=== PATIENT | female | born 1940 | race Caucasian/White ===

== ENCOUNTER 2017-01-24 17:47 | Inpatient (IN) ==
--- NOTE | 2017-01-24 23:06 | Hospitalist History & Physical ---
Assessment and Plan (1) Chronic wound of extremity Status: Acute Current Visit: Yes (2) History of gout Status: Acute Current Visit: Yes (3) Atrial fibrillation Status: Acute Current Visit: Yes (4) Supratherapeutic INR Status: Acute Current Visit: Yes (5) Hypertension Status: Acute Current Visit: Yes (6) Chronic pain Status: Acute Current Visit: Yes (7) Urinary tract infection Status: Acute Assessment and plan: Our plan for this patient is admitting her to our service. I need wound care to evaluate the patient for her chronic wounds. I need to start on some antibiotics for a urinary tract infection that was diagnosed at the outside facility. We will repeat urinalysis and cultures here. I need to follow INR daily. I need to order chemistry tonight and tomorrow. We need to get this lady's left ankle x-rayed. This can be done in the morning. The x-rays okay need to start some physical therapy on this patient. Daily INR and restart Coumadin when the INR is 2. Current Visit: Yes History of Present Illness Chief complaint: Transfer from [facility] History of present illness: Ms. Villavicencio is a 76 year old female past medical history significant for chronic wounds atrial fibrillation and hypertension who lives at home with her . She obtains her medical care from [facility]. That is where her primary care doctor is. She also has been seen at the wound care clinic by Dr. Rosamaria Michelle. Patient checks her Coumadin level at home. She held her Coumadin after she noted she developed a hematoma on her right chest wall. She checked it yesterday and noted that it was 8. Patient went to [facility] because she could not tolerate standing on her left ankle. Patient was diagnosed with urinary tract infection. We accepted the patient as transfer because of her chronic weeping wounds and the fact that her INR was still elevated at 5. Antibiotics were not start started at the outside facility. Home Medications Medication Instructions Recorded Confirmed Type Carvedilol [Coreg] 25 mg PO BID 01/24/17 01/24/17 History Digoxin 250 mcg PO DAILY 01/24/17 01/24/17 History Furosemide Tab [Lasix Tab] 20 mg PO DAILY PRN 01/24/17 01/24/17 History Lisinopril 20 mg PO DAILY 01/24/17 01/24/17 History Meloxicam 7.5 mg PO BEDTIME 01/24/17 01/24/17 History Potassium Chloride 10 meq PO DAILY 01/24/17 01/24/17 History Warfarin [Coumadin] 4 mg PO DAILY@1800 01/24/17 01/24/17 History fentaNYL [Fentanyl 12.5 mcg/hr 1 patch TRANSDERM Q3DAY 01/24/17 01/24/17 History Patch] Allergies Allergy/AdvReac Type Severity Reaction Status Date / Time allopurinol Allergy Severe severe rash Verified 09/20/15 09:17 amlodipine [From Norvasc] Allergy Severe severe Verified 09/20/15 09:20 edema, rash gabapentin [From Neurontin] Allergy Severe passed out Verified 09/20/15 09:19 red dye Allergy Severe excoriating Verified 09/20/15 09:20 rash, edema metformin Allergy Unknown nausea, Verified 09/20/15 09:18 vomiting, blisters morphine Allergy itch, rash Verified 09/20/15 09:21 Medical,Surgical,& Family Hx - Medical History Other: History of: Miscellaneous Medical Problems (Chronic wounds, atrial fibrillation, hypertension, osteoarthritis, gout) - Surgical History Additional Surgical History: Skin grafts, appendectomy, hernia, , cholecystectomy, hysterectomy - Family History Family History: Reports;: Family Cancer - Social History Smoking Status: Never smoker Frequency of Alcohol Use: None Type of Drug Use: None 12 point system: reviewed and no additional remarkable complaints except as stated Exam - Constitutional General appearance: over weight - Head Head exam: Present: normal inspection - Eye Eye exam: Present: EOMI Pupils: Present: JAILYN - ENT ENT exam: Present: normal exam - Neck Neck exam: Present: normal inspection - Respiratory Respiratory exam: Present: clear to auscultation bilaterally - Cardiovascular Cardiovascular exam: Present: irregular rhythm, other (Patient has a chest wall hematoma on the right) - GI/Abdominal GI/Abdominal exam: Present: normal bowel sounds - Extremities Exam Extremities exam: Present: edema, other (Patient has generalized weakness in her lower extremities. She has her chronic wound wrapped on the left. There are year several wounds on her buttocks.) - Back Exam Back exam: Present: normal inspection - Neurological Exam Neurological exam: Present: oriented X3 - Psychiatric Psychiatric exam: Present: normal affect, normal mood Results - Labs Labs: Labs from [facility] white count 10.76 hemoglobin 8.6 hematocrit 27.7 platelets 352 urinalysis negative nitrites moderate leukocyte esterases uric acid 4.5 INR is 5.7 I do not see a chemistry
[2017-01-24] MEDS ORDERED: ONDANSETRON 4 MG/2 ML VIAL IV PRN (23:40)
[2017-01-24] MEDS ORDERED: FUROSEMIDE 20 MG TABLET PO PRN (23:47)
[2017-01-25] MEDS: ACETAMINOPHEN 325 MG TABLET PO PRN ×2 (00:18→08:07)
[2017-01-25 01:43] LABS: Calcium 7.6 MG/DL (8.5-10.1); Osmolality,Calculated 283.1 MOS/KG (273-304); Potassium 3.8 MMOL/L (3.5-5.1)
[2017-01-25] MEDS: cefTRIAXone 1,000 MG in SODIUM CHLORIDE 0.9% 100 ML IV SCH (04:39)
[2017-01-25 05:38] LABS: Apearance,Urine Slightly Hazy (Clear); Bacteria,Urine Many /HPF (Few); Bilirubin,Urine Negative (Negative); Blood, Urine Negative (Negative); Glucose,Urine (UA) Negative (Negative); Ketones,Urine Negative (Negative); Mucus,Urine Occasional /LPF (Occasional); Nitrite,Urine Negative (Negative); Protein,Urine 30 MG/DL; RBC,Urine 3 /HPF (0-4); Squamous Epithelial Cell,Urine Occasional /HPF (0-10); Urine Color Amber (Yellow); Urine Specific Gravity 1.017 (1.001-1.035); Urine Urobilinogen < 2.0 EU/DL (0.2-1.0); WBC,Urine 194 /HPF (0-6)
[2017-01-25 05:53] LABS: Basophils % 0.3 % (0.0-0.8); Eosinophils # 0.1 10*3/uL (0.0-0.87); Eosinophils % 0.9 % (0.00-10.9); Hematocrit 23.9 VOL% (35.7-47.0); Hemoglobin 7.8 GM/DL (12.0-16.0); Immature Granulocytes % 1.3 %; Immature Granulocytes Absolute 0.13 #; Lymphocytes # 1.5 10*3/uL (1.4-4.0); Lymphocytes % 15.3 % (21.3-54.2); Mean Corpuscular HGB Conc 32.6 GM/DL (32-36); Mean Corpuscular Hemoglobin 29 PG (27-34); Mean Corpuscular Volume 87.5 FL (87-102); Mean Platelet Volume 10.1 FL (9.6-12.0); Monocytes # 0.9 10*3/uL (0.11-0.8); Monocytes % 8.6 % (1.7-12.7); Neutrophils # 7.3 10*3/uL (1.4-7.4); Neutrophils % 73.6 % (38.7-73.9); Platelet Count 324 T/CUMM (130-400); Red Blood Count 2.73 MC/CUMM (3.8-5.5); Red Cell Distribution Width 13.4 % (9.3-17.3); White Blood Count 9.9 T/CUMM (4-12)
[2017-01-25 06:12] LABS: PT Patient Result 73.2 SECS
[2017-01-25 06:14] LABS: INR 6.2
[2017-01-25 06:57] LABS: Calcium 7.6 MG/DL (8.5-10.1); Osmolality,Calculated 276.1 MOS/KG (273-304); Potassium 3.5 MMOL/L (3.5-5.1)
[2017-01-25] MEDS: LISINOPRIL 20 MG TABLET PO SCH (08:07)
[2017-01-25] MEDS: POTASSIUM CHLORIDE 10 MEQ TABLET PO SCH (08:08)
[2017-01-25] MEDS: PANTOPRAZOLE 40 MG TABLET PO SCH (08:08)
--- NOTE | 2017-01-25 09:06 | XRay Report ---
Exam: XR ankle 2V RT Date: 01/25/2017 7:00 AM Comparison: 03/15/2016 Indication: Ankle pain Technique:[AP lateral right ankle] Findings: Soft tissue swelling. Persistent extensive soft tissue calcifications and arterial calcifications. Joint space narrowing with osteophytes including calcaneal osteophyte. Chronic os trigonum. No acute fracture or dislocation, or periosteal thickening. Impression: Soft tissue swelling with extensive soft tissue and arterial calcifications. Minimal to moderate DJD with calcaneal osteophytes. No acute fracture or dislocation. PROCEDURE INTERPRETED AT [facility] DEPARTMENT OF RADIOLOGY Final Report Signed by: Dr. Kortney Beck
[2017-01-25] MEDS: DIGOXIN 0.25 MG TABLET PO SCH (11:22)
[2017-01-25] MEDS: CARVEDILOL 25 MG TABLET PO SCH ×2 (11:22→20:54)
[2017-01-25] MEDS: COLLAGENASE OINT 30 GM TUBE TOP SCH (16:58)
[2017-01-25] MEDS: oxyCODONE IR 5 MG TABLET PO PRN (20:47)
[2017-01-25] MEDS: MELOXICAM 7.5 MG TABLET PO SCH (20:47)
[2017-01-25] MEDS: ZALEPLON 5 MG CAPSULE PO PRN (20:48)
--- NOTE | 2017-01-25 20:54 | Hospitalist Progress Note ---
Hospitalist: Subjective Interval history: 76 year old female past medical history significant for chronic wounds atrial fibrillation and hypertension who lives at home with her . She obtains her medical care from [facility]. That is where her primary care doctor is. She also has been seen at the wound care clinic by Dr. Rosamaria Michelle. Patient checks her Coumadin level at home. She held her Coumadin after she noted she developed a hematoma on her right chest wall. She checked it yesterday and noted that it was 8. Patient went to [facility] because she could not tolerate standing on her left ankle. Patient was diagnosed with urinary tract infection. We accepted the patient as transfer because of her chronic weeping wounds and the fact that her INR was still elevated at 5. Antibiotics were not start started at the outside facility. Exam - Constitutional Vitals: Period Temp Pulse Resp BP Sys/Lester Pulse Ox Last 24 Hr 97 F-98.1 F 56-73 16-20 109-138/49-60 91-99 Exam: General: No Acute Distress HEENT: Normocephalic, atraumatic, Extra ocular movements intact Neck: Supple, No JVD Chest: Clear to auscultation B/L CV: S1 + S2 audible without murmur, gallop or rub Abd: soft, NT, Non-distended, BS + Ext: Positive edema, lower extremity wounds Skin: No purpura, bruising or rash Rheumatologic: No Joint deformities Neurologic: Strength 5/5 all extremities, no gross sensory deficits Results - Labs CBC & BMP: 01/25/17 05:36 01/25/17 05:36 - Impressions Assessment and Plan (1) Chronic wound of extremity Status: Acute Current Visit: Yes (2) History of gout Status: Acute Current Visit: Yes (3) Atrial fibrillation Status: Acute Current Visit: Yes (4) Supratherapeutic INR Status: Acute Current Visit: Yes Coumadin remains on hold, continue to monitor INR (5) Hypertension Status: Acute Current Visit: Yes (6) Chronic pain Status: Acute Current Visit: Yes Continue fentanyl and oxycodone (7) Urinary tract infection Status: Acute Continue IV Rocephin
[2017-01-26] MEDS: cefTRIAXone 1,000 MG in SODIUM CHLORIDE 0.9% 100 ML IV SCH (01:44)
[2017-01-26] MEDS: oxyCODONE IR 5 MG TABLET PO PRN ×4 (01:53→22:08)
[2017-01-26 04:21] LABS: INR 3.9
[2017-01-26 04:44] LABS: PT Patient Result 45.1 SECS
[2017-01-26] MEDS ORDERED: SKIN HEALING OINT (AQUAPHOR) 50 GM TUBE TOP PRN (08:05)
[2017-01-26] MEDS: DIGOXIN 0.25 MG TABLET PO SCH (08:26)
[2017-01-26] MEDS: LISINOPRIL 20 MG TABLET PO SCH (08:27)
[2017-01-26] MEDS: PANTOPRAZOLE 40 MG TABLET PO SCH (08:27)
[2017-01-26] MEDS: POTASSIUM CHLORIDE 10 MEQ TABLET PO SCH (08:28)
[2017-01-26] MEDS: CARVEDILOL 25 MG TABLET PO SCH ×2 (08:28→22:06)
[2017-01-26] MEDS: predniSONE 20 MG TABLET PO SCH (11:14)
[2017-01-26] MEDS: POLYETHYLENE GLYCOL POWDER 17 GM PACK PO SCH (11:19)
[2017-01-26] MEDS ORDERED: ENOXAPARIN 40 MG/0.4 ML SYRINGE SUBCUT SCH (13:00)
--- NOTE | 2017-01-26 13:55 | Hospitalist Progress Note ---
Hospitalist: Subjective Interval history: 76 year old female past medical history significant for chronic wounds atrial fibrillation and hypertension who lives at home with her . She obtains her medical care from [facility]. That is where her primary care doctor is. She also has been seen at the wound care clinic by Dr. Rosamaria Michelle. Patient checks her Coumadin level at home. She held her Coumadin after she noted she developed a hematoma on her right chest wall. She checked it yesterday and noted that it was 8. Patient went to [facility] because she could not tolerate standing on her left ankle. Patient was diagnosed with urinary tract infection. We accepted the patient as transfer because of her chronic weeping wounds and the fact that her INR was still elevated at 5. Antibiotics were not start started at the outside facility. Exam - Constitutional Vitals: Period Temp Pulse Resp BP Sys/Lester Pulse Ox Last 24 Hr 97.5 F-100 F 66-87 16-20 128-152/58-69 96-100 Exam: General: No Acute Distress HEENT: Normocephalic, atraumatic, Extra ocular movements intact Neck: Supple, No JVD Chest: Clear to auscultation B/L CV: S1 + S2 audible without murmur, gallop or rub Abd: soft, NT, Non-distended, BS + Ext: Positive edema, lower extremity wounds Skin: No purpura, bruising or rash Rheumatologic: No Joint deformities Neurologic: Strength 5/5 all extremities, no gross sensory deficits Results - Labs CBC & BMP: 01/25/17 05:36 01/25/17 05:36 - Impressions Assessment and Plan (1) Chronic wound of extremity Status: Acute Current Visit: Yes (2) History of gout Status: Acute Current Visit: Yes Started on prednisone 01/26 (3) Paroxysmal atrial fibrillation Status: Acute Current Visit: Yes (4) Supratherapeutic INR Status: Acute Current Visit: Yes Coumadin remains on hold, continue to monitor INR, and restart Coumadin at a lower dose and monitor INR (5) Hypertension Status: Acute Current Visit: Yes (6) Chronic pain syndrome Status: Acute Current Visit: Yes Continue fentanyl and oxycodone (7) Urinary tract infection Status: Acute Continue IV Rocephin DVT prophylaxis with Coumadin
[2017-01-26] MEDS: COLLAGENASE OINT 30 GM TUBE TOP SCH (15:13)
[2017-01-26] MEDS: fentaNYL 25 MCG/HR PATCH TRANSDERM SCH (15:14)
[2017-01-26] MEDS: MELOXICAM 7.5 MG TABLET PO SCH (22:06)
[2017-01-26] MEDS: ZALEPLON 5 MG CAPSULE PO PRN (22:06)
[2017-01-27] MEDS: cefTRIAXone 1,000 MG in SODIUM CHLORIDE 0.9% 100 ML IV SCH (00:19)
[2017-01-27 06:28] LABS: INR 3.1
[2017-01-27 06:37] LABS: PT Patient Result 34.7 SECS
[2017-01-27] MEDS: predniSONE 20 MG TABLET PO SCH (09:13)
[2017-01-27] MEDS: PANTOPRAZOLE 40 MG TABLET PO SCH (09:13)
[2017-01-27] MEDS: POTASSIUM CHLORIDE 10 MEQ TABLET PO SCH (09:13)
[2017-01-27] MEDS: LISINOPRIL 20 MG TABLET PO SCH (09:14)
[2017-01-27] MEDS: fentaNYL 12 MCG/HR PATCH TRANSDERM SCH (09:14)
[2017-01-27] MEDS: POLYETHYLENE GLYCOL POWDER 17 GM PACK PO SCH (09:15)
[2017-01-27] MEDS: CARVEDILOL 25 MG TABLET PO SCH (10:02)
[2017-01-27] MEDS: DIGOXIN 0.25 MG TABLET PO SCH (10:02)
[2017-01-27] MEDS: CHOLECALCIFEROL 1,000 UNIT TABLET PO SCH (12:33)
[2017-01-27] MEDS: CARVEDILOL 12.5 MG TABLET PO SCH ×2 (12:33→21:55)
[2017-01-27] MEDS: oxyCODONE IR 5 MG TABLET PO PRN ×2 (14:28→21:58)
[2017-01-27] MEDS: COLLAGENASE OINT 30 GM TUBE TOP SCH (15:17)
--- NOTE | 2017-01-27 17:57 | Hospitalist Progress Note ---
Hospitalist: Subjective Interval history: 76 year old female past medical history significant for chronic wounds atrial fibrillation and hypertension who lives at home with her . She obtains her medical care from [facility]. That is where her primary care doctor is. She also has been seen at the wound care clinic by Dr. Rosamaria Michelle. Patient checks her Coumadin level at home. She held her Coumadin after she noted she developed a hematoma on her right chest wall. She checked it yesterday and noted that it was 8. Patient went to [facility] because she could not tolerate standing on her left ankle. Patient was diagnosed with urinary tract infection. We accepted the patient as transfer because of her chronic weeping wounds and the fact that her INR was still elevated. Antibiotics were not start started at the outside facility. Exam - Constitutional Vitals: Period Temp Pulse Resp BP Sys/Lester Pulse Ox Last 24 Hr 97 F-98 F 54-87 18-20 121-178/59-84 92-98 Exam: General: No Acute Distress HEENT: Normocephalic, atraumatic, Extra ocular movements intact Neck: Supple, No JVD Chest: Clear to auscultation B/L CV: S1 + S2 audible without murmur, gallop or rub Abd: soft, NT, Non-distended, BS + Ext: Positive edema, lower extremity wounds Skin: No purpura, bruising or rash Rheumatologic: No Joint deformities Neurologic: Strength 5/5 all extremities, no gross sensory deficits Results - Labs CBC & BMP: 01/25/17 05:36 01/25/17 05:36 - Impressions Assessment and Plan \ (1) Chronic wound of extremity Status: Acute Current Visit: Yes (2) Acute gout flareup Status: Acute Current Visit: Yes Started on prednisone 01/26 (3) Paroxysmal atrial fibrillation Status: Acute Current Visit: Yes (4) Supratherapeutic INR Status: Acute Current Visit: Yes Coumadin remains on hold, continue to monitor INR, and restart Coumadin at a lower dose and monitor INR (5) Hypertension Status: Acute Current Visit: Yes (6) Chronic pain syndrome Status: Acute Current Visit: Yes Continue fentanyl and oxycodone (7) Urinary tract infection Status: Acute Continue IV Rocephin Physical deconditioning: Continue PT and OT, she will benefit from going to rehab or swing bed DVT prophylaxis with Coumadin
[2017-01-27] MEDS: MELOXICAM 7.5 MG TABLET PO SCH (21:55)
[2017-01-28] MEDS: cefTRIAXone 1,000 MG in SODIUM CHLORIDE 0.9% 100 ML IV SCH (00:23)
[2017-01-28 06:17] LABS: Basophils % 0.2 % (0.0-0.8); Eosinophils % 0.1 % (0.00-10.9); Hematocrit 24.1 VOL% (35.7-47.0); Hemoglobin 7.8 GM/DL (12.0-16.0); Immature Granulocytes % 1.4 %; Immature Granulocytes Absolute 0.12 #; Lymphocytes # 1.6 10*3/uL (1.4-4.0); Lymphocytes % 19.5 % (21.3-54.2); Mean Corpuscular HGB Conc 32.4 GM/DL (32-36); Mean Corpuscular Hemoglobin 29 PG (27-34); Mean Platelet Volume 10.1 FL (9.6-12.0); Monocytes # 0.6 10*3/uL (0.11-0.8); Monocytes % 6.8 % (1.7-12.7); Platelet Count 437 T/CUMM (130-400); Red Blood Count 2.74 MC/CUMM (3.8-5.5); Red Cell Distribution Width 13.2 % (9.3-17.3); White Blood Count 8.3 T/CUMM (4-12)
[2017-01-28 06:28] LABS: INR 2.7
[2017-01-28 06:29] LABS: PT Patient Result 30.9 SECS
[2017-01-28 06:52] LABS: Calcium 7.9 MG/DL (8.5-10.1); Osmolality,Calculated 272.5 MOS/KG (273-304); Potassium 5.4 MMOL/L (3.5-5.1); Thyroid Stimulating Hormone 0.72 uIU/ml (0.358-3.74)
[2017-01-28] MEDS: DIGOXIN 0.25 MG TABLET PO SCH (09:20)
[2017-01-28] MEDS: LISINOPRIL 20 MG TABLET PO SCH (09:21)
[2017-01-28] MEDS: CARVEDILOL 12.5 MG TABLET PO SCH ×2 (09:21→20:55)
[2017-01-28] MEDS: PANTOPRAZOLE 40 MG TABLET PO SCH (09:21)
[2017-01-28] MEDS: CHOLECALCIFEROL 1,000 UNIT TABLET PO SCH (09:21)
[2017-01-28] MEDS: POLYETHYLENE GLYCOL POWDER 17 GM PACK PO SCH (09:22)
[2017-01-28] MEDS: POTASSIUM CHLORIDE 10 MEQ TABLET PO SCH (09:22)
[2017-01-28] MEDS: predniSONE 20 MG TABLET PO SCH (09:22)
[2017-01-28] MEDS: COLLAGENASE OINT 30 GM TUBE TOP SCH (09:23)
--- NOTE | 2017-01-28 11:04 | Discharge Summary ---
<Violet Hooper - Last Filed: 01/30/17 08:00> Hospital Course - Hospital Course Hospital Course: 76-year-old white female with history of chronic wounds, A. fib on Coumadin, gout, hypertension, and chronic pain admitted by the hospitalist service as a transfer from an outside facility on 01/24/2017 with UTI, inability to walk due to left ankle pain, and supratherapeutic INR of 8. Patient was admitted and her Coumadin was held. Her last INR was 1.9. she has been started on Eliquis for her anticoagulation. She has also been started on antibiotics for her urinary tract infection and she is asymptomatic with good urine output. Her potassium is elevated and her supplementation has been stopped and she has received kayexalate. X-ray of her ankle was obtained and just showed some soft tissue swelling with no acute fracture or dislocation. Patient has been undergoing physical therapy and OT and is being transferred to swing bed for further rehab. .Urine grew Proteus resistant to levaquin and she was treated with Rocephin. Will also make an appointment with Dr. Rosamaria Simon who has followed her in the wound center before for her chronic wounds. She will need to follow-up with her primary care physician who is at [facility] within 1 week of her discharge from swing bed. Complete discharge instructions were given to the patient. Care coordination, chart review, and completed discharge paperwork took approximately 35 minutes.Her vitals are stable, she will receive another dose of kayexalate prior to discharge.We will also dc on Augmentin po x7days for her UTI. - Time spent with patient Time with patient DS: Greater than 30 minutes Diagnosis - Discharge Diagnosis (1) Chronic wound of extremity Status: Chronic (2) History of gout Status: Chronic (3) Atrial fibrillation Status: Chronic (4) Supratherapeutic INR Status: Resolved (5) Hypertension Status: Chronic (6) Chronic pain Status: Chronic (7) Urinary tract infection Status: Resolved Specialty Discharge - Follow Up or Referrals Follow up with: [facility], PCP [Other] - 2 Weeks Salvador Blank Jr., MD [Physician] - 1 Week (wound center) Discharge Plan - Discharge Data Disposition: Swing Bed, [facility] Based, [facility] Tony Condition at Discharge: Stable Discharge Diet: heart healthy Activity: as per physical therapy Hygiene: may shower Contact your physician if you experience:: fever over 101, Shortness of breath Wound / Dressing Care Instructions: bilateral LE: wash with hibiclens. rinse well with saline. apply 1/4" thick santyl to each open area. cover with adaptic. cover with optifoam. buttocks: AFTER DAILY BATH AND PRN SOILING. apply santyl to wound bed. cover with adaptic. secure with optifoam sacrum - Discharge Medications New Carvedilol [Coreg] 12.5 mg PO BID tablet Collagenase Oint [Santyl Oint] 1 applic TOP DAILY applic Polyethylene Glycol Powder [Miralax] 17 gm PO DAILY Skin Healing Oint (Aquaphor) [Aquaphor] 1 applic TOP PRN PRN applic PRN Reason: Dry Skin Cholecalciferol [Vitamin D3] 2,000 unit PO DAILY tablet fentaNYL 25 MCG/HR PATCH [Duragesic 25 Patch] 1 patch TRANSDERM Q3DAY #7 patch oxyCODONE IR [Roxicodone] 10 mg PO Q6H PRN #20 tablet PRN Reason: Pain Severe (8-10) Amoxicillin/Clav Tab [Augmentin Tab] 875 mg PO BID #14 tablet Apixaban [Eliquis] 5 mg PO BID tablet Continue Furosemide Tab [Lasix Tab] 20 mg PO DAILY PRN PRN Reason: Shortness Of Breath/Wheezing Lisinopril 20 mg PO DAILY Digoxin 250 mcg PO DAILY Meloxicam 7.5 mg PO BEDTIME #20 fentaNYL [Fentanyl 12.5 mcg/hr Patch] 1 patch TRANSDERM Q3DAY #7 Discontinued Potassium Chloride 10 meq PO DAILY Carvedilol [Coreg] 25 mg PO BID Warfarin [Coumadin] 4 mg PO DAILY@1800 - Follow Up or Referral Follow Up: Salvador Blank Jr., MD [Physician] - 1 Week (wound center) [facility], PCP [Other] - 2 Weeks - Forms/Instructions Exam - Constitutional Vitals: Period Temp Pulse Resp BP Sys/Lester Pulse Ox Last 24 Hr 97.7 F-98.9 F 66-82 16-22 101-139/50-68 91-98 Exam: 76-year-old white female, no acute distress, alert and oriented Chest clear CV irregularly irregular Abdomen obese, nontender Extremities with 1+ edema, dressings intact for multiple chronic wounds Discharge Results Labs on day of discharge: Labs from last 24 hours 01/30/17 01/30/17 01/30/17 07:23 05:50 05:50 WBC 11.8 D RBC 3.75 L D Hgb 10.7 L D Hct 33.0 L MCV 88.0 MCH 29 MCHC 32.4 RDW 14.5 Plt Count 446 H MPV 9.9 Neut % (Auto) 63.6 Lymph % (Auto) 19.6 L Wake % (Auto) 10.5 Eos % (Auto) 1.9 Baso % (Auto) 0.5 Neut # (Auto) 7.5 H Lymph # (Auto) 2.3 Wake # (Auto) 1.2 H Eos # (Auto) 0.2 Baso # (Auto) 0.1 Immature Gran % 3.9 Nucleated RBC % 0.5 Immature Gran # 0.46 Nucleated RBCs # 0.06 Immature Plt Fraction 0.0 Sodium 134 L Potassium 5.5 H Chloride 97 L Carbon Dioxide 31 Anion Gap 11.5 BUN 31 H Creatinine 0.80 GFR Calculation 80 BUN/Creatinine Ratio 38.00 H Glucose 80 POC Glucose 108 H Calculated Osmolality 273.2 Calcium 8.0 L Blood Type Antibody Screen Crossmatch 01/29/17 01/29/17 01/29/17 19:43 19:28 18:12 WBC RBC Hgb Hct MCV MCH MCHC RDW Plt Count MPV Neut % (Auto) Lymph % (Auto) Wake % (Auto) Eos % (Auto) Baso % (Auto) Neut # (Auto) Lymph # (Auto) Wake # (Auto) Eos # (Auto) Baso # (Auto) Immature Gran % Nucleated RBC % Immature Gran # Nucleated RBCs # Immature Plt Fraction Sodium Potassium Chloride Carbon Dioxide Anion Gap BUN Creatinine GFR Calculation BUN/Creatinine Ratio Glucose POC Glucose 212 H Calculated Osmolality Calcium Blood Type AB POSITIVE AB POSITIVE Antibody Screen Negative Crossmatch See Detail 01/29/17 01/29/17 16:46 10:54 WBC RBC Hgb Hct MCV MCH MCHC RDW Plt Count MPV Neut % (Auto) Lymph % (Auto) Wake % (Auto) Eos % (Auto) Baso % (Auto) Neut # (Auto) Lymph # (Auto) Wake # (Auto) Eos # (Auto) Baso # (Auto) Immature Gran % Nucleated RBC % Immature Gran # Nucleated RBCs # Immature Plt Fraction Sodium Potassium Chloride Carbon Dioxide Anion Gap BUN Creatinine GFR Calculation BUN/Creatinine Ratio Glucose POC Glucose 226 H 158 H Calculated Osmolality Calcium Blood Type Antibody Screen Crossmatch DS: Provider Date of admission: 01/24/17 21:29 Primary care physician: Demetrio Rivera MD Attending physician on admission: Demetrio Rivera MD Consults: 01/24/17 23:46 Consult to Wound Care - Stacy [CONS] Routine Reason for Wound Care: Wound Care Management 01/25/17 02:42 Consult to Dietitian [CONS] Routine Reason for Dietitian: Dietary Consult 01/26/17 17:10 Consult to Case Mgmt/Social Srvs [CONS] Routine Reason for Case Mgmt/Social Srvs: Swingbed/SNF/Prison Consult to Occupational Therapy [CONS] Routine Reason for Occupational Therapy: Evaluate and Treat Consult to Physical Therapy [CONS] Routine Reason for Physical Therapy: Evaluate and Treat 01/28/17 11:15 Consult to Physical Therapy [CONS] Routine Reason for Physical Therapy: Evaluate and Treat Consult Comment: ok to see pt w hgb less than 8 Discharging clinician: ARMIDA Schrader Expected date of discharge: 01/30/17 <Loren Brewer - Last Filed: 01/30/17 11:10> Hospital Course - Time spent with patient Time with patient DS: Greater than 30 minutes (Greater than 35mins) Diagnosis - Discharge Diagnosis (1) Chronic wound of extremity Status: Chronic (2) Atrial fibrillation Status: Chronic (3) Hypertension Status: Chronic (4) Urinary tract infection Status: Resolved Discharge Plan - Forms/Instructions Additional Discharge Instructions: Follow with PCP in 1week Exam - Constitutional General appearance: no acute distress, over weight - Head Head exam: Present: normal inspection - Respiratory Respiratory exam: Present: clear to auscultation bilaterally - Cardiovascular Cardiovascular exam: Present: regular rate and rhythm - GI/Abdominal GI/Abdominal exam: Present: normal bowel sounds - Extremities Exam Extremities exam: Present: normal inspection - Neurological Exam Neurological exam: Present: alert, oriented X3
--- NOTE | 2017-01-28 11:20 | Hospitalist Progress Note ---
Assessment and Plan - Time spent with patient Time spent with patient: Less than 30 minutes (1) Chronic wound of extremity Status: Chronic Assessment and plan: 76-year-old white female admitted by hospitalist on 01/24/2017 with UTI, inability to walk due to left ankle pain (gouty flareup), and supratherapeutic INR of 8. Dr. De Jesus will see and examine patient and further recommendations to follow. UTI--patient is on Rocephin. Cultures growing Proteus Mirabilis that is sensitive to Rocephin. Patient is on day 4. Patient is afebrile and white count is normal. Patient is asymptomatic Chronic lower extremity wound--patient has been seen by hand of the wound care nurse and orders have been written. Patient will need to follow-up with Dr. Rosamaria Simon upon discharge. Acute gout flareup--patient is feeling much better. Prednisone was started on 819 Paroxysmal A. fib--Coumadin has been held due to supratherapeutic INR of 8. Her INR is now therapeutic at 2.7. Patient is requesting to be switched over to Eliquis. Will discuss this with Dr. De Jesus on when he wants to start this and at what dose. Hypertension--this is under control on her current home regimen Chronic pain syndrome--patient is on fentanyl and oxycodone Debility--patient is awaiting physical therapy evaluation for swing bed placement, hopefully today. She was not seen yesterday due to hemoglobin being below 8. PT was notified that it is okay to evaluate patient with hemoglobin of 7. Current Visit: Yes (2) History of gout Status: Chronic Current Visit: Yes (3) Atrial fibrillation Status: Chronic Current Visit: Yes (4) Supratherapeutic INR Status: Resolved Current Visit: Yes (5) Hypertension Status: Chronic Current Visit: Yes (6) Chronic pain Status: Chronic Current Visit: Yes (7) Urinary tract infection Status: Resolved Current Visit: Yes Hospitalist: Subjective Interval history: Patient feels fine today. She is awaiting swing bed placement. Her UTI is asymptomatic. Exam - Constitutional Vitals: Period Temp Pulse Resp BP Sys/Lestre Pulse Ox Last 24 Hr 98 F-98.7 F 54-87 18-20 134-178/65-77 92-98 Exam: 76-year-old white female, no acute distress, alert and oriented Chest clear CV irregularly irregular Abdomen obese, nontender Extremities with 1+ edema, dressings intact on multiple chronic wounds Results - Labs CBC & BMP: 01/28/17 04:23 01/28/17 04:23 Lab Results: I have reviewed the past 24 hour labs Specialty Discharge - Follow Up or Referrals Follow up with: [facility], PCP [Other] - 2 Weeks Salvador Blank Jr., MD [Physician] - 1 Week (wound center)
[2017-01-28] MEDS: ACETAMINOPHEN 325 MG TABLET PO PRN (11:32)
[2017-01-28] MEDS: oxyCODONE IR 5 MG TABLET PO PRN ×2 (13:10→20:53)
[2017-01-28] MEDS: APIXABAN 5 MG TABLET PO SCH (20:55)
[2017-01-28] MEDS: MELOXICAM 7.5 MG TABLET PO SCH (20:55)
[2017-01-28] MEDS ORDERED: GLUCAGON 1 MG VIAL IM PRN (21:22)
[2017-01-28] MEDS ORDERED: DEXTROSE 50% 25 GM/50 ML SYRINGE IV PRN (21:22)
[2017-01-28] MEDS: INSULIN LISPRO 100 UNIT/ML SUBCUT SCH (21:46)
[2017-01-29] MEDS: cefTRIAXone 1,000 MG in SODIUM CHLORIDE 0.9% 100 ML IV SCH (02:52)
[2017-01-29 06:37] LABS: INR 1.9
[2017-01-29 06:42] LABS: PT Patient Result 20.7 SECS
[2017-01-29 06:56] LABS: Osmolality,Calculated 278.1 MOS/KG (273-304); Potassium 5.4 MMOL/L (3.5-5.1)
[2017-01-29] MEDS ORDERED: INSULIN LISPRO 100 UNIT/ML SUBCUT SCH (07:30)
[2017-01-29] MEDS: INSULIN LISPRO 100 UNIT/ML SUBCUT SCH ×4 (09:30→22:44)
[2017-01-29] MEDS: PANTOPRAZOLE 40 MG TABLET PO SCH (09:31)
[2017-01-29] MEDS: LISINOPRIL 20 MG TABLET PO SCH (09:32)
[2017-01-29] MEDS: APIXABAN 5 MG TABLET PO SCH ×2 (09:32→22:45)
[2017-01-29] MEDS: CHOLECALCIFEROL 1,000 UNIT TABLET PO SCH (09:32)
[2017-01-29] MEDS: CARVEDILOL 12.5 MG TABLET PO SCH ×2 (09:32→22:44)
[2017-01-29] MEDS: oxyCODONE IR 5 MG TABLET PO PRN ×3 (09:32→22:44)
[2017-01-29] MEDS: DIGOXIN 0.25 MG TABLET PO SCH (09:32)
[2017-01-29] MEDS ORDERED: SODIUM POLYSTYRENE SULFATE 15 GM/60 ML BOTTLE PO STA (09:53)
[2017-01-29] MEDS: POLYETHYLENE GLYCOL POWDER 17 GM PACK PO SCH (11:03)
[2017-01-29] MEDS: fentaNYL 25 MCG/HR PATCH TRANSDERM SCH (11:03)
--- NOTE | 2017-01-29 13:36 | Hospitalist Progress Note ---
<Violet Hooper - Last Filed: 01/29/17 13:32> Assessment and Plan - Time spent with patient Time spent with patient: Less than 30 minutes (1) Chronic wound of extremity Status: Chronic Assessment and plan: 76-year-old white female admitted by hospitalist on 01/24/2017 with UTI, inability to walk due to left ankle pain (gouty flareup), and supratherapeutic INR of 8. Dr. Brewer will see and examine patient and further recommendations to follow. UTI--patient is on Rocephin. Cultures growing Proteus Mirabilis that is sensitive to Rocephin. Patient is on day 4. Patient is afebrile and white count is normal. Patient is asymptomatic Chronic lower extremity wound--patient has been seen by hand of the wound care nurse and orders have been written. Patient will need to follow-up with Dr. Rosamaria Simon upon discharge. Acute gout flareup--Dr. De Jesus felt this was more suggestive of neuropathy rather than a gouty flareup so he discontinued the prednisone. Paroxysmal A. fib--Coumadin has been held due to supratherapeutic INR of 8. Her INR is now therapeutic at 1.9. Patient has been switched to Eliquis for anticoagulation and this was started yesterday. Hypertension--this is under control on her current home regimen Chronic pain syndrome--patient is on fentanyl and oxycodone Debility--patient was denied swing bed at [facility] due to pain being a limiting factor. Patient has been participating with PT and OT so social services specialist will attempt to try [facility] for swing bed. Patient can be transferred if bed is available. Current Visit: Yes (2) History of gout Status: Chronic Current Visit: Yes (3) Atrial fibrillation Status: Chronic Current Visit: Yes (4) Supratherapeutic INR Status: Resolved Current Visit: Yes (5) Hypertension Status: Chronic Current Visit: Yes (6) Chronic pain Status: Chronic Current Visit: Yes (7) Urinary tract infection Status: Resolved Current Visit: Yes Hospitalist: Subjective Interval history: Patient states she feels a little better this morning. She did participate with physical therapy and did everything they asked of her. Unfortunately patient was denied swing bed at [facility] because they felt her pain would get in the way of her rehab. They are attempting [place] for swing bed now. Exam - Constitutional Vitals: Period Temp Pulse Resp BP Sys/Lester Pulse Ox Last 24 Hr 97.0 F-97.8 F 69-80 18-20 125-149/63-77 95-99 Exam: 76-year-old white female, no acute distress, alert and oriented Chest clear CV irregularly irregular Abdomen obese, nontender Extremities with moderate edema Results - Labs CBC & BMP: 01/28/17 04:23 01/29/17 06:00 Lab Results: I have reviewed the past 24 hour labs Specialty Discharge - Follow Up or Referrals Follow up with: [facility], PCP [Other] - 2 Weeks Salvador Blank Jr., MD [Physician] - 1 Week (wound center) <Loren Brewer - Last Filed: 01/29/17 14:22> Hospitalist: Subjective Interval history: patient seen.No new complaints.Will give Kayexalate for elevated potassium, follow response. Exam - Constitutional Vitals: Period Temp Pulse Resp BP Sys/Lester Pulse Ox Last 24 Hr 97.0 F-97.8 F 69-80 18-20 125-149/63-77 95-99 Results - Labs CBC & BMP: 01/28/17 04:23 01/29/17 06:00
[2017-01-29] MEDS: COLLAGENASE OINT 30 GM TUBE TOP SCH (15:40)
[2017-01-29] MEDS ORDERED: SODIUM CHLORIDE 0.9% 250 ML IV PRN (16:40)
[2017-01-29] MEDS: MELOXICAM 7.5 MG TABLET PO SCH (22:45)
[2017-01-30] MEDS: cefTRIAXone 1,000 MG in SODIUM CHLORIDE 0.9% 100 ML IV SCH (00:40)
[2017-01-30 06:38] LABS: Basophils # 0.1 10*3/uL (0.0-0.2); Basophils % 0.5 % (0.0-0.8); Eosinophils # 0.2 10*3/uL (0.0-0.87); Eosinophils % 1.9 % (0.00-10.9); Immature Granulocytes % 3.9 %; Immature Granulocytes Absolute 0.46 #; Lymphocytes # 2.3 10*3/uL (1.4-4.0); Lymphocytes % 19.6 % (21.3-54.2); Mean Corpuscular HGB Conc 32.4 GM/DL (32-36); Mean Corpuscular Hemoglobin 29 PG (27-34); Mean Platelet Volume 9.9 FL (9.6-12.0); Monocytes # 1.2 10*3/uL (0.11-0.8); Monocytes % 10.5 % (1.7-12.7); NRBC # 0.06 10*3/uL; Neutrophils # 7.5 10*3/uL (1.4-7.4); Neutrophils % 63.6 % (38.7-73.9); Platelet Count 446 T/CUMM (130-400); Red Cell Distribution Width 14.5 % (9.3-17.3)
[2017-01-30 06:54] LABS: White Blood Count 11.8 T/CUMM (4-12)
[2017-01-30 06:55] LABS: Hemoglobin 10.7 GM/DL (12.0-16.0); Red Blood Count 3.75 MC/CUMM (3.8-5.5)
[2017-01-30 07:49] LABS: Osmolality,Calculated 273.2 MOS/KG (273-304); Potassium 5.5 MMOL/L (3.5-5.1)
[2017-01-30] MEDS ORDERED: SODIUM POLYSTYRENE SULFATE 15 GM/60 ML BOTTLE PO ONE (07:55)
[2017-01-30] MEDS: INSULIN LISPRO 100 UNIT/ML SUBCUT SCH ×2 (08:48→12:31)
[2017-01-30] MEDS: oxyCODONE IR 5 MG TABLET PO PRN (09:21)
[2017-01-30] MEDS: CHOLECALCIFEROL 1,000 UNIT TABLET PO SCH (09:22)
[2017-01-30] MEDS: APIXABAN 5 MG TABLET PO SCH (09:22)
[2017-01-30] MEDS: DIGOXIN 0.25 MG TABLET PO SCH (09:22)
[2017-01-30] MEDS: CARVEDILOL 12.5 MG TABLET PO SCH (09:22)
[2017-01-30] MEDS: LISINOPRIL 20 MG TABLET PO SCH (09:22)
[2017-01-30] MEDS: PANTOPRAZOLE 40 MG TABLET PO SCH (09:22)
[2017-01-30] MEDS: fentaNYL 12 MCG/HR PATCH TRANSDERM SCH (09:26)
[2017-01-30] MEDS: POLYETHYLENE GLYCOL POWDER 17 GM PACK PO SCH (09:32)
[2017-01-30 12:48] VITALS: BP 145/65
[2017-01-30] MEDS: COLLAGENASE OINT 30 GM TUBE TOP SCH (14:22)
--- NOTE | 2017-02-01 17:49 | Physician Query Form ---
CLICK EDIT DOCUMENT TO SELECT QUERY ANSWER --> OK --> SIGN Catherine Hammond RN [employer] W) [phone] (f) [phone] [email or web address] PROVIDERS: Make your selection(s) from the choices in EACH section by typing an "x" and enter comments in the comment section. Please use your independent medical judgment in providing your response. This request does not imply that any particular answer is desired or expected. CLINICAL INDICATORS: (Providers should not edit this section) Wound care nurse initial assessment states "Stage 3 pressure ulcer to upper buttocks" Santyl and Aquaphor ordered. Based on the above, could you clarify the appropriate diagnosis, if significant , that supports the above abnormalities and additional evaluation, monitoring, and/or treatment rendered: (x ) Agree with wound care nurse initial assessment ( ) Do NOT agree with wound care nurse initial assessment ( ) Other, please specify: ( ) Clinically unable to determine COMMENTS: PLEASE ALSO DOCUMENT RESPONSE IN PROGRESS NOTES AND/OR DISCHARGE SUMMARY Use of terms such as suspected, likely, or probable (associated with a specific diagnosis that is being evaluated, monitored, or treated as if it exists) are acceptable and can be restated in the discharge summary if not ruled out. MTDD
== END 2017-01-30 15:10 | disposition swing bed (61) | DRG 689 ==
LOC: SUATTDRO 21:29 → N.TELEN 21:29 → N.5E 01-28 16:50
PROVIDERS: ADMIT Internal Medicine; ATTEND Internal Medicine